=== PATIENT | male | born 1995 | race Caucasian/White ===

== ENCOUNTER 2022-07-18 07:47 | Emergency (ER) | payer OTHER, SELFPAY ==
[2022-07-18 07:53] VITALS: BP 133/74; PULSE 92; RESP 16; TEMP 37.8; O2SAT 99
--- NOTE | 2022-07-18 08:05 | ED.GENADUL_ITS ---
Discharge Plan Disposition Patient Disposition: Home Condition: Stable Discharge Details Chief Complaint: Sorethroat Clinical Impression: Strep pharyngitis Primary Care Provider: None,None ED Provider: Gray Bethea Home Meds and New Rx's Prescriptions: New amoxicillin 500 mg tablet 500 mg PO BID Qty: 20 0RF Continued modafinil [Provigil] 100 mg Tablet See Rx Instructions .ROUTE .COMPLEX Rx Instructions: Pt is unsure about the dose- thinks its 26 mg Discharge Instructions Instructions: Strep Throat (ED) Additional Instructions: you are positive for strep if not better within a week follow up with your primary care provider or urgent care if you feel more ill, have difficulty breathing or difficulty swallowing liquids return to the emergency department Medical Decision Making 26 yo male with no significant pmhx comes in with cc of sore throat since yesterday and states he was exposed to strep a few days ago. HE also has had a low grade fever, no chills, no dyspnea, no cough. He arrives stable speaking clearly in no distress, swallowing and breathing normally. He has erythematous posterior pharynx with exudates, midline uvula, no submandibular swelling and no pain over the hyoid or restricted neck movements. Rapid strep is positive, will treat with amoxicillin. He has no findings to suggest peritonsilar abscess or epiglottitis or retropharyngeal abscess. He will f/u with his pcp or express care if not improving and return precautions given Differential Diagnosis Differential Diagnosis: strep, covid, flu HPI General Mode of arrival: ambulatory . Date/Time Provider Initiated Documentation: 07/18/22 07:57 . Limitations to Documentation: no limitations . Information obtained by: patient . History of Present Illness 26 year old M presents to the emergency department with the chief complaint of sore throat, described as moderate, Quality is described as aching, Patient started experiencing this day(s) (1) and it has been constant. No relieving factors improve symptom(s), No exacerbating factors reported . Patient notes fever/chills. Patient did receive the following treatments prior to arrival, none Related Data Home Medications Medication Instructions Recorded Confirmed amoxicillin 500 mg tablet 500 mg PO BID #20 tabs 07/18/22 modafinil 100 mg tablet (Provigil) See Rx Instructions .Route .COMPLEX 07/18/22 07/18/22 Previous Rx's Medication Instructions Recorded amoxicillin 500 mg tablet 500 mg PO BID #20 tabs 07/18/22 Allergies Allergy/AdvReac Type Severity Reaction Status Date / Time No Known Allergies Allergy Unverified 07/18/22 07:58 General Stated Complaint: Sorethroat JANAY: 4 Review of Systems All systems reviewed & are unremarkable except as noted in HPI and below Constitutional Constitutional: Denies chills and Denies weakness ENT Ears, Nose, Mouth, and Throat: Denies change in voice Cardiovascular Cardiovascular: Denies chest pain and Denies dyspnea Respiratory Respiratory: Denies cough and Denies dyspnea Gastrointestinal Gastrointestinal: Denies abdominal pain, Denies nausea and Denies vomiting Integumentary/Breasts Skin/Breast: Denies rash Neurologic Neurologic: Denies weakness PFSH All Active Problems (Updated 07/18/22 @ 08:10 by Gray Bethea MD) Strep pharyngitis (Acute) Social History Smoking/Tobacco Use Status: Current every day Tobacco Type: cigarettes Smoking risk assessment performed?: Yes Alcohol Intake: current Alcohol Intake frequency: a few times a month Drug use: Never Substance use type: does not use Exam Const General: no acute distress Orientation: alert HENMT Head: normal to inspection and normocephalic Ears: external ears normal and TM's normal bilaterally General nose exam: external nose normal Mouth: moist mucous membranes Eyes General: appearance normal, both eyes and all related structures Neck Neck: normal visual inspection Resp Effort & Inspection: normal respiratory effort and able to speak in complete sentences Cardio Rate: regular rate Skin General skin exam: no rashes or lesions noted Neuro General: patient alert and patient oriented x3 Extrem General: normal to inspection Psych Mental Status: mental status grossly normal Course Vital Signs Vital signs: Vital Signs Temperature 37.8 C H 07/18/22 07:53 Pulse 92 H 07/18/22 07:53 Respiratory Rate 16 07/18/22 07:53 Blood Pressure 133/74 07/18/22 07:53 Pulse Oximetry 99 07/18/22 07:53 Temperature 37.8 C H 07/18/22 07:53 Temperature Source Tympanic 07/18/22 07:53 Pulse 92 H 07/18/22 07:53 Respiratory Rate 16 07/18/22 07:53 Respiratory Effort Normal 07/18/22 07:56 Blood Pressure 133/74 07/18/22 07:53 Blood Pressure Position Sitting 07/18/22 07:53 Pulse Oximetry 99 07/18/22 07:53 Oxygen Delivery Method Room Air 07/18/22 07:53 Oxygen Flow Rate 0 07/18/22 07:53 Pain Level 2 07/18/22 07:53 PAWSS Have you Been Recently Intoxicated or Drunk Within the Last 30 days?: Yes Have you Ever Experienced Previous Episodes of Alcohol Withdrawal?: No Have you ever Experienced Withdrawal Seizures?: No Have you ever Experienced Delirium Tremens(DT)s?: No Have you ever undergone Alcohol Rehabilitation Treatment (i.e, inpt ot outpatient treatment programs)?: No Have you ever Experienced Blackouts?: No Have you ever Combined Alcohol with other Downers within the last 90 days?: No Have you ever Combined Alcohol with any other Substance of Abuse during the last 90 days?: No Result: 1
== END 2022-07-18 08:16 | disposition home or self-care (01) ==
PROVIDERS: Emergency Provider Emergency Medicine
DX: J02.0 Streptococcal pharyngitis (principal)
CPT/HCPCS: 87880; 99282; 99283